=== PATIENT | male | born 1995 | race Caucasian/White ===

== ENCOUNTER 2017-11-27 17:35 | Emergency (ER) | payer OTHER ==
[~2017-11-27] VITALS: Ht 170.2 cm; Wt 72.7 kg
[2017-11-27 17:42] VITALS: Ht 170.2 cm; Wt 72.7 kg
[2017-11-27] MEDS ORDERED: NORCO 7.5/325 T1 TA1 PO (21:16)
[2017-11-27] MEDS ORDERED: TORADOL10 MG PO (21:16)
[2017-11-27 21:45] VITALS: BP 122/82
== END 2017-11-27 22:10 | disposition home or self-care (01) ==
LOC: D.ER 17:35
DX: S43.102A Unspecified dislocation of left acromioclavicular joint, initial encounter (principal); V86.59XA Driver of other special all-terrain or other off-road motor vehicle injured in nontraffic accident, initial encounter; Y93.89 Activity, other specified; Y92.019 Unspecified place in single-family (private) house as the place of occurrence of the external cause; S01.111A Laceration without foreign body of right eyelid and periocular area, initial encounter; S01.511A Laceration without foreign body of lip, initial encounter